=== PATIENT | male | born 1940 | race Caucasian/White ===

== ENCOUNTER 2018-08-22 17:23 | Emergency (ER) | payer OTHER ==
[2018-08-22 17:46] VITALS: TEMP 97.9; BMI 23.0
--- NOTE | 2018-08-22 18:21 | PDOC ---
History of Present Illness - General Chief Complaint: Injury Stated Complaint: FALL Time Seen by Provider: 08/22/18 18:00 - History of Present Illness Initial Comments: Maida Funk is a 78yo man with a PMH of CAD s/p AK (2yrs ago) s/p stents , a-fib on Eliquis, HTN, HLD who presents following a mechanical fall. He states that he was leaving a store when his walker wheel became stuck in mud, and he "flipped over the front" of his walker. He says that he scraped his face on the sidewalk, but he denies any LOC. He did not hit any of his extremities or torso when he fell. He says that bystanders did not allow hiim to stand up by himself, but he was able to ambulate without difficulty after the fall. Mr Funk denies any focal neurological deficits, difficulty speaking, headache , lightheadedness, or any other symptoms prior to the fall. Past History - Past Medical History Allergies/Adverse Reactions: Allergies Allergy/AdvReac Type Severity Reaction Status Date / Time No Known Allergies Allergy Verified 08/22/18 18:01 Home Medications: Ambulatory Orders Cardizem - 60 mg PO DAILY 08/22/18 Eliquis - 5 mg PO BID 08/22/18 Lasix 20 mg PO DAILY 08/22/18 Lipitor 80 mg PO DAILY 08/22/18 Metoprolol Succinate 100 mg PO DAILY 08/22/18 Cardiac Disorders: Yes (AFIB, 3 STENTS) COPD: No HTN: Yes Hypercholesterolemia: Yes - Immunization History Td Vaccination: Yes (2008) Immunization Up to Date: Yes - Suicide/Smoking/Psychosocial Hx Smoking Status: No Smoking History: Never smoked Have you smoked in the past 12 months: No Number of Cigarettes Smoked Daily: 0 Information on smoking cessation initiated: No Hx Alcohol Use: (1 CUP WINE DAILY) Drug/Substance Use Hx: No Review of Systems - Review of Systems Comments:: General: No fevers, no chills, no weight or appetite change, no malaise HEENT: No changes in vision, no changes in hearing, no congestion, no sore throat CV: No chest pain, no palpitations, no LE edema Pulm: No SOB, no cough, no wheezing GI: No nausea or vomiting, no change in bowel habits, no melena : No frequency, no urgency, no dysuria Musc: No back pain, no joint swelling, no recent injury Skin: No rash, no lesions, no erythema Endo: No excessive thirst, no heat/cold intolerance Heme: No unusual bruising or bleeding, no swollen glands Neuro: No syncope, no numbness/tingling, no focal weakness Vasc: No claudication Psych: No recent change in mood, no SI or HI *Physical Exam - Vital Signs Last Vital Signs Temp Pulse Resp BP Pulse Ox 97.9 F 89 17 102/72 99 08/22/18 17:42 08/22/18 17:42 08/22/18 17:42 08/22/18 17:42 08/22/18 17:42 - Physical Exam Comments: General: Comfortable, no acute distress HEENT: PERRL, EOMI, MMM, voice normal, normal neck ROM. Superficial forehead abrasion less than 1cm, no active bleeding. 2cm abrasion over nasal bridge w/ slight oozing blood. Cards: RRR, no murmur appreciated Pulm: Comfortable on room air, clear to auscultation bilaterally Abd: Soft, nontender, nondistended Ext: No LE edema. ROM intact. Strength equal bilaterally. L forearm with small less than 1cm superficial abrasion, no longer bleeding. Vasc: Extremities WWP Neuro: A&Ox3, CN grossly intact, normal speech, motor/sensory grossly intact and symmetric Psych: Mood appropriate to situation Moderate Sedation - Procedure Monitoring Vital Signs: Procedure Monitoring Vital Signs Temperature 97.9 F 08/22/18 17:42 Pulse Rate 89 08/22/18 17:42 Respiratory Rate 17 08/22/18 17:42 Blood Pressure 102/72 08/22/18 17:42 O2 Sat by Pulse Oximetry (%) 99 08/22/18 17:42 Medical Decision Making - Medical Decision Making 08/22/18 18:16 Maida Funk is a 78yo man with a PMH of CAD s/p AK (2yrs ago) s/p stents , a-fib on Eliquis, HTN, HLD who presents following a mechanical fall. There was no LOC, he was able to get up immediately after the fall, and he denies any injury to his extremities. He is noted to have small (1cm or less) abrasions to his forehead, nasal bridge, and L wrist that do not require intervention. - No AMS, no LOC. Given that Mr Funk takes Eliquis, will CT head to r/o bleed. CT c-spine given age. - No need to intervene on abrasion. Adequate hemostasis achieved after cleaning wounds. Will bandage. 08/22/18 19:18 - CT completed. Reviewed in ED, no acute problems noted. Radiology read pending. - Will most likely d/c home after radiology reports completed. - Pt endorsed to Dr Agrawal for remainder of ED care. Discussed with Dr Odonnell. Suzan Garrison PGY1 *DC/Admit/Observation/Transfer Diagnosis at time of Disposition: Fall - Discharge Dispostion Disposition: HOME Condition at time of disposition: Stable Decision to Admit order: No - Referrals Referrals: [facility] [place] Internal [facility] at [place] [Provider Group] - Patient Instructions Printed Discharge Instructions: DI for Abrasion Additional Instructions: Discharge Instructions: You were seen in the emergency department following a fall. You have several abrasions to your face and arms that should heal without any intervention. You had a CT scan of your head and neck, but these did not show any concerning injury. Home Care and Follow Up: - You may use over the counter medications as needed for pain at home. 650- 1000mg acetaminophen (Tylenol) can be used every 6-8 hours. - Try using an ice pack for 20 minutes every hour or a heating pad for additional pain control. These should NOT be used over the lidocaine patch, but you may place them over the areas of pain while the patch is off. - Do not stop moving around. As much as you can tolerate, continue to do light exercise and stretching exercises. Increase your activity level as much as you can tolerate daily. - If your pain does not improve over the next week, you have been referred to the [facility] for follow up. - Seek immediate medical care if you have significant worsening of your symptoms , you become confused or sleepy, you have continued bleeding from your wounds, you have any focal neurological problems such as one-sided weakness or numbness , or you have any other medical emergency. - Post Discharge Activity
--- NOTE | 2018-08-22 18:50 | PDOC ---
Attending Attestation - HPI HPI: 08/22/18 19:39 The patient is a 78 year old male, with a significant past medical history of CAD (s/p ID 2yrs ago s/p cardiac stenting), Afib (on Eliquis), HTN, HLD, who presents to the emergency department s/p mechanical fall. As per patient, he was ambulating using his walker when it got stuck in mud causing him to flip over. Patient endorses abrasions to the left forehead, bridge of the nose, left wrist, and left hand. He denies any LOC. He denies any recent fevers, chills, headache or dizziness. He denies any recent nausea, vomit, diarrhea or constipation. He denies any recent chest pain or shortness of breath. He denies any recent dysuria, frequency, urgency or hematuria. Allergies: NKDA - Physicial Exam PE: 08/22/18 19:39 GENERAL: Well-appearing, well-nourished. No apparent distress. +HEENT: Superficial forehead abrasion approximately 1cm, without active bleeding. 2cm abrasion to nasal bridge with slight oozing blood. PERRL, EOM intact. CARDIOVASCULAR: Normal S1, S2. Regular rate and rhythm. PULMONARY: Clear to auscultation bilaterally. ABDOMEN: Soft, non-distended, non-tender. +EXTREMITIES: L forearm with small less than 1cm superficial abrasion, no active bleeding. Normal ROM in all four extremities. No gross deformities. SKIN: Warm, dry. No rash NEUROLOGICAL: No focal neurological deficits. <Jose Alfredo Valdez - Last Filed: 08/22/18 19:38> - Resident Resident Name: Suzan Garrison - ED Attending Attestation I have performed the following: I have examined & evaluated the patient, The case was reviewed & discussed with the resident, I agree w/resident's findings & plan, Exceptions are as noted - Medical Decision Making 08/22/18 21:05 CT scan of head is negative for any acute intracranial pathology, no skull fracture ct scan of c spine no acute fracture 08/22/18 21:29 pt had witnessed mechanical fall imp Abrasion to nasal bride,rt hand,forehead plan bacitracin to wounds <Sarai Odonnell - Last Filed: 08/22/18 21:30> Attestations - Attestations 08/22/18 19:39 Documentation prepared by Jose Alfredo Valdez, acting as medical technical writer for Sarai Odonnell MD. <Jose Alfredo Valdez - Last Filed: 08/22/18 19:38>
[2018-08-22] MEDS ORDERED: BACITRACIN 0.9 GM PACKET ONE (19:28)
--- NOTE | 2018-08-22 21:10 | PDOC ---
*Physical Exam - Vital Signs Last Vital Signs Temp Pulse Resp BP Pulse Ox 97.9 F 89 17 102/72 99 08/22/18 17:42 08/22/18 17:42 08/22/18 17:42 08/22/18 17:42 08/22/18 17:42 Medical Decision Making - Medical Decision Making 08/22/18 21:05 Patient signed out by Dr. MariaDC/Admit/Observation/Transfer Diagnosis at time of Disposition: Fall - Discharge Dispostion Disposition: HOME Condition at time of disposition: Stable - Referrals Referrals: [facility] [place] [facility] [place] [Provider Group] - Patient Instructions Printed Discharge Instructions: DI for Abrasion Additional Instructions: Discharge Instructions: You were seen in the emergency department following a fall. You have several abrasions to your face and arms that should heal without any intervention. You had a CT scan of your head and neck, but these did not show any concerning injury. Home Care and Follow Up: - You may use over the counter medications as needed for pain at home. 650- 1000mg acetaminophen (Tylenol) can be used every 6-8 hours. - Try using an ice pack for 20 minutes every hour or a heating pad for additional pain control. These should NOT be used over the lidocaine patch, but you may place them over the areas of pain while the patch is off. - Do not stop moving around. As much as you can tolerate, continue to do light exercise and stretching exercises. Increase your activity level as much as you can tolerate daily. - If your pain does not improve over the next week, you have been referred to the [facility] for follow up. - Seek immediate medical care if you have significant worsening of your symptoms , you become confused or sleepy, you have continued bleeding from your wounds, you have any focal neurological problems such as one-sided weakness or numbness , or you have any other medical emergency. - Post Discharge Activity
[2018-08-22 21:33] VITALS: BP 124/76; PULSE 99
== END 2018-08-22 21:31 | disposition home or self-care (01) ==
LOC: JER 17:23
DX: S00.81XA Abrasion of other part of head, initial encounter (principal); S00.31XA Abrasion of nose, initial encounter; S60.812A Abrasion of left wrist, initial encounter; W01.0XXA Fall on same level from slipping, tripping and stumbling without subsequent striking against object, initial encounter; Y93.89 Activity, other specified; Y92.480 Sidewalk as the place of occurrence of the external cause; Y99.8 Other external cause status; R26.89 Other abnormalities of gait and mobility; Z99.89 Dependence on other enabling machines and devices; I25.10 Atherosclerotic heart disease of native coronary artery without angina pectoris; I10 Essential (primary) hypertension; Z95.5 Presence of coronary angioplasty implant and graft; I25.2 Old myocardial infarction; I48.91 Unspecified atrial fibrillation; Z79.01 Long term (current) use of anticoagulants; E78.5 Hyperlipidemia, unspecified
CPT/HCPCS: 70450-TC; 72125-TC; 99282-25

== ENCOUNTER 2020-11-12 15:47 | Emergency (ER) | payer OTHER ==
[2020-11-12 16:39] VITALS: TEMP 98.6; BMI 23.7
[2020-11-12 18:42] LABS: BASO % 0.4 % (0-2.0); EOS % 5.3 % (0-4.5); HEMATOCRIT 31.7 % (35.4-49); HEMOGLOBIN 10.6 GM/dL (11.7-16.9); LYMPH % 12.2 % (8-40); MCH 31.7 pg (25.7-33.7); MCHC 33.3 g/dl (32.0-35.9); MEAN CELL VOLUME 95.2 fl (80-96); MEAN PLT VOLUME 11.6 fl (7.5-11.1); MONO % 10.5 % (3.8-10.2); NEUT % 71.6 % (42.8-82.8); PLATELET COUNT 150 K/MM3 (134-434); RBC 3.33 M/mm3 (4.00-5.60); RDW 16.2 % (11.9-15.9); WHITE BLOOD COUNT 6.4 K/mm3 (4.0-10.0)
[2020-11-12 19:07] LABS: ALBUMIN 3.3 g/dl (3.4-5.0); BLOOD UREA NITROGEN 52.1 mg/dL (7-18); CALCIUM 8.3 mg/dL (8.5-10.1)
[2020-11-12 19:11] LABS: CREATININE 2.5 mg/dL (0.55-1.3)
[2020-11-12 19:12] LABS: BILIRUBIN,TOTAL 0.4 mg/dL (0.2-1); TOT PROT 6.7 g/dl (6.4-8.2)
[2020-11-12 22:00] VITALS: PULSE 86
[2020-11-12 22:24] VITALS: BP 110/79
[2020-11-12 22:59] LABS: EPI CELLS 5 /uL (0-25.1); HYALINE CASTS 4 /uL (0-3.1); URINE APPEARANCE CLOUDY; URINE BACTERIA 7153 /uL (0-1359); URINE BILIRUBIN NEGATIVE (NEGATIVE); URINE COLOR YELLOW; URINE GLUCOSE (UA) NEGATIVE (NEGATIVE); URINE KETONE NEGATIVE (NEGATIVE); URINE LEUK ESTERASE 3+ (NEGATIVE); URINE NITRITE POSITIVE (NEGATIVE); URINE PROTEIN TRACE (NEGATIVE); URINE RBC 349 /uL (0-23.9); URINE UROBILINOGEN 0.2 mg/dL (0.2-1.0); URINE WBC 506 /uL (0-25.8)
== END 2020-11-12 22:01 | disposition home or self-care (01) ==
LOC: JER 15:47
DX: R41.82 Altered mental status, unspecified (principal)
CPT/HCPCS: 36415; 70450-TC; 71045-TC-FY; 80053; 81003; 82550; 82962; 84484; 85025; 87086; 87186; 93005; 93010; 99285-25

== ENCOUNTER 2021-01-01 16:23 | Emergency (ER) | payer OTHER ==
[2021-01-01] MEDS ORDERED: EPINEPHrine INTRACARD 1:10,000 1 MG/10 ML DISP.SYRIN ONE (17:02)
[2021-01-01] MEDS ORDERED: MIDAZOLAM HCL 2 MG/2 ML SINGLE DOSE VIAL ONE (17:09)
[2021-01-01 17:57] VITALS: BP 124/111; PULSE 62; BMI 34.8
[2021-01-01 18:05] LABS: RDW 19.1 % (11.9-15.9)
[2021-01-01 18:09] LABS: BASO % 0.6 % (0-2.0); EOS % 2.3 % (0-4.5); HEMATOCRIT 24.6 % (35.4-49); LYMPH % 9.9 % (8-40); MCH 29.4 pg (25.7-33.7); MCHC 31.7 g/dl (32.0-35.9); MEAN CELL VOLUME 92.7 fl (80-96); MEAN PLT VOLUME 9.6 fl (7.5-11.1); MONO % 1.6 % (3.8-10.2); NEUT % 85.6 % (42.8-82.8); PLATELET COUNT 198 10^3/uL (134-434); RBC 2.66 M/mm3 (4.00-5.60); WHITE BLOOD COUNT 16.2 K/mm3 (4.0-10.8)
[2021-01-01 18:13] LABS: HEMOGLOBIN 7.8 GM/dl (11.7-16.9)
[2021-01-01 18:14] LABS: ALBUMIN 1.9 g/dl (3.4-5.0); BILIRUBIN,TOTAL 1.7 mg/dl (0.2-1); CALCIUM 7.1 mg/dl (8.5-10); CREATININE 2.1 mg/dl (0.55-1.3)
== END 2021-01-01 21:06 | disposition expired ==
LOC: FER 16:23
DX: I46.9 Cardiac arrest, cause unspecified (principal)
CPT/HCPCS: 36415; 71045-TC-FY; 80053; 82550; 84484; 85025; 99285-25; C9803; U0003; U0005